=== PATIENT | male | born 1990 | race Caucasian/White ===

== ENCOUNTER 2020-04-19 15:17 | Observation (INO) | payer OTHER ==
[2020-04-20] MEDS ORDERED: BUPIVACAINE HCL 0.5% 30 ML VIAL As Ordered ONE (01:58)
[2020-04-20] MEDS ORDERED: ceFAZolin 2 GM/D5W 50 ML IV BAG (J0690 PER 500MG) As Ordered ONE (01:58)
[2020-04-20] MEDS ORDERED: dexameTHASONE 4 MG/ML 1ML VIAL (J1100 PER 1MG) As Ordered ONE (02:06)
[2020-04-20] MEDS ORDERED: KETOROLAC 60MG 2ML VIAL As Ordered ONE (02:06)
[2020-04-20] MEDS ORDERED: propofoL 200 MG/20 ML VIAL As Ordered ONE (02:06)
[2020-04-20] MEDS ORDERED: LIDOCAINE 2% 100MG/5ML SDV (FOR ANES.) As Ordered ONE (02:06)
[2020-04-20] MEDS ORDERED: MIDAZOLAM INJ 2MG/2ML VIAL (J2250 PER 1MG) As Ordered ONE (02:06)
[2020-04-20] MEDS ORDERED: fentaNYL 100 MCG/2 ML INJECTION (J3010) As Ordered ONE (02:06)
[2020-04-20] MEDS ORDERED: ONDANSETRON 4MG/2ML VIAL As Ordered ONE ×2 (02:06→03:14)
[2020-04-20] MEDS ORDERED: ONDANSETRON 4MG/2ML VIAL ONE (03:14)
[2020-04-20] MEDS ORDERED: oxyCODONE 5MG TAB ONE (03:14)
[2020-04-20] MEDS ORDERED: oxyCODONE 5MG TAB As Ordered ONE (03:15)
[2020-04-20] MEDS ORDERED: ASPIRIN 325 MG TAB As Ordered ONE (08:39)
[2020-04-20] MEDS ORDERED: ASPIRIN 325 MG TAB ONE (08:39)
[2020-04-21] MEDS ORDERED: ASPIRIN 325 MG TAB ONE (08:05)
[2020-05-18 01:30] LABS: APPEARANCE, BODY FLUID CLOUDY
[2020-05-18 01:31] LABS: CRYSTALS, BODY FLUID URIC ACID (NONE SEEN); SOURCE, BODY FLUID CRYSTALS LFT KNEE
[2020-05-18 11:26] LABS: BASO # 0.1 10^3/uL (0.0-0.2); BASO % 0.7 % (0.0-1.0); EOS # 0.1 10^3/uL (0.0-0.5); EOS % 1.2 % (0.0-3.0); ERYTHROCYTE SEDIMENTATION RATE 49 mm/hr (0-15); HEMOGLOBIN 14.6 g/dl (13.5-17.5); LYMPH # 2.1 10^3/uL (1.5-5.0); MEAN CORPUSCULAR HEMOGLOBIN 29.6 pg (27.0-33.0); MEAN CORPUSCULAR HGB CONC 33.2 g/dl (32.0-36.5); MEAN CORPUSCULAR VOLUME 89.2 fl (80.0-96.0); MONO # 1.5 10^3/uL (0.0-0.8); MONO % 15.4 % (0.0-5.0); NEUTROPHILS % 61.3 % (36.0-66.0); PLATELET COUNT, AUTOMATED 408 10^3/uL (150-450); RED BLOOD COUNT 4.93 10^6/uL (4.30-6.10); WHITE BLOOD COUNT 9.8 10^3/uL (4.0-10.0)
--- NOTE | 2020-05-23 14:33 | ER ---
DATE: 04/19/2020 REASON FOR CONSULTATION: Left knee swelling. 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 Patient does have a history of gout with one time flares in each foot, but nothing in his knees. He developed pain and swelling on April 15, and then over the next few days progressive knee pain and swelling, to the point where he had pain with weightbearing and severely restricted range of motion. He did have a flare of similar episodes a year to two ago that was nothing as bad as this. An emergency room (ER) physician attempted to aspirate his knee and got a dry tap. Patient is reporting fairly severe stabbing and throbbing pain a 10/10 on a pain scale at its worst, improved with morphine. LABORATORY DATA: Patient has an elevated C-reactive protein of 13, sed rate around 49, and white count is normal. Lyme test pending. Patient denies any COVID-19 symptoms. He is on a mandatory 14-day quarantine, but we did just get a negative COVID-19 test today. The quarantine is per protocol. For the patients full past medical history, past surgical history, medications, allergies, and social history, please see the emergency room intake form, which was reviewed. SOCIAL HISTORY: Patient is active duty. He just completed his third tour of duty. He just bought a house. He has a . They live in [place]. He does not smoke. 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 REVIEW OF SYSTEMS: Patient denies neurologic, cardiac, pulmonary, and abdominal symptoms. Umang skin symptoms or urinary symptoms. Musculoskeletal as above. PHYSICAL EXAMINATION: GENERAL: Reveals a well-appearing appearing gentleman in no distress. Alert and oriented x3. NEUROLOGIC: Appropriate mood and affect. CARDIOVASCULAR: 2+ PT pulse. PULMONARY: Nonlabored breathing. ABDOMEN: Nondistended. SKIN: Intact without open lesions. MUSCULOSKELETAL: Patient has a very large left knee effusion, which is warm, but there is no redness. He lacks 10 degrees of extension. He really can only flex to 50 degrees and he has severe pain with that. His effusion is tense and it is exquisitely tender to palpation. There is also swelling at the posteromedial aspect of the knee. Calf is soft and nontender. He is distally neurovascularly intact. IMAGING: An MRI was ordered and the report, not images, is available. Images not being available is due to the recent malware attack on [facility]. The report stated that there was a large joint effusion and Bakers cyst that appears to have partially decompressed into the posteromedial soft tissues. PLAN: Gigi Singer has a left knee effusion concerning for a septic joint versus gout. He needs an aspiration. The risks and benefits of a left knee aspiration were discussed. Written and informed consent obtained. PROCEDURE: The left knee was sterilely prepped with Betadine. I aspirated 60 mL of cloudy yellow synovial fluid with an 18-gauge needle. This was sent for stat fluid analysis and culture including aerobic, anaerobic, and fungal. The results of this aspiration reveals 72,000 white blood cells, 89% neutrophils, and small amount of uric acid crystals. ASSESSMENT: Gigi has a left knee effusion with gout versus septic arthritis versus a combination of the two. Options at this point are to proceed with an arthroscopic irrigation and debridement. In the likelihood that this is both gout and a septic joint, this would help minimize the risk of significant chondral damage. This is my recommendation. I offered for him to try to treat this nonoperatively with high dose Aleve and repeat blood testing in 36 hours; that is certainly a reasonable option, but it does carry a risk of delayed intervention and progressive chondral damage if it is in fact a bacterial septic arthritis. So after a long conversation, the patient has agreed to proceed with surgery. We discussed the risks and benefits of arthroscopic irrigation, debridement, and drain placement. Written informed consent was obtained. ROSEANNA
[2020-06-03 18:27] LABS: SOURCE, BODY FLUID GLUCOSE LFT KNEE
[2020-06-03 18:27] LABS: C REACTIVE PROTEIN QUANTITATIV 13.2 MG/DL (0.00-0.30); URIC ACID 9.3 MG/DL (3.5-7.2)
[2020-06-03 18:42] LABS: BODY FLUID RHEUMATOID SCREEN NEGATIVE (NEGATIVE)
[2020-06-03 18:43] LABS: MUCIN CLOT TEST 1+ (4+)
--- NOTE | 2020-06-22 10:57 | RO ---
DATE OF OPERATION: 04/20/2020 PREOPERATIVE DIAGNOSIS: Left knee effusion with probable septic arthritis. POSTOPERATIVE DIAGNOSIS: Left knee effusion with probable septic arthritis. PROCEDURE: Left knee arthroscopic irrigation and debridement. SURGEON: Lincoln Cao M.D. PATHOLOGY SUPERVISOR: None. ANESTHESIA: General. IV FLUIDS: Lactated ringers. ESTIMATED BLOOD LOSS: 50 mL. SPECIMEN: None. DRAINS: ARCELIA x1. CLOSURE: Nylon. DESCRIPTION OF PROCEDURE: The patient was identified in the preoperative holding area and the left leg was marked. He was brought to the operating room and placed supine on a well-padded OR table. General anesthesia induced. Examination under anesthesia revealed a large joint effusion with re-accumulation since his earlier aspiration. Positive full extension, flexion 125 degrees, stable varus and valgus stress, grade 1A David, negative posterior drawer. The left leg was then prepped and draped in the normal sterile fashion with ChloraPrep. He received 2 grams of IV cefazolin within 30 minutes of incision. A time-out was then performed per hospital protocol. An anterolateral portal was localized with a spinal needle and incision made with an 11 blade. The 30-degree arthroscope was introduced into the joint and the suction used to evacuate re-accumulation of his effusion. MRI reports that he has a large Bakers cyst so that was palpated and fluid posteriorly was attempted to be expressed into the joint. 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 There was extensive diffuse synovitis. There was cloudy fluid consistent with the same fluid from his aspiration. Medial compartment was inspected. There was [id number] chondromalacia. No obvious medial meniscus tearing. A large ligamentum mucosum was identified. There was some debris and fibrinous tissue in the anterior compartment. The leg was brought through the [id number] position where there were crystal embedded within the articular cartilage of the lateral tibial plateau consistent with the presence of gout crystals on the aspiration. No lateral meniscus tearing. An anteromedial portal was created under direct visualization and then the shaver introduced. I proceeded to flush the knee with 3 liters of lactated ringers. I then used the shaver to perform a debridement of all fibrinous tissue taking care not to disrupt hyperemic synovium to create extra bleeding. The pocket of crystals in the lateral compartment were debrided and removed with the shaver. The scope was placed back into the medial compartment and the joint was flushed. The scope was then placed in the lateral compartment and the joint was flushed. I then passively flexed and extended the knee repeatedly and palpated and attempted to manually decompress the Bakers cyst. The probe was placed toward the popliteal hiatus and flushed. The knee was then brought into full extension and the remainder of the joint was flushed, irrigated, and debrided. A total of 9 liters of fluid were used. A size 19 round drain was then placed under arthroscopic guidance exiting proximal and lateral to the patella. The arthroscope was removed and portals were closed with nylon suture. I injected 20 mL of 0.5% Marcaine without epinephrine, 10 at the portals and 10 into the joint. The John-Nowak (ARCELIA) drain was then attached to bulb suction. A bulky sterile dressing was then applied. All counts correct x2. Complications none. Patient was extubated and transferred to the PACU in stable condition. DISPOSITION: Patient will need to have IV antibiotics until Friday. If cultures are no growth at that point, he can be discharged on oral Bactrim with telephone follow-up the following Friday to check on final culture status. Patient is going to see his primary care doctor to start treatment for gout. ROSEANNA
== END 2020-04-21 12:08 | disposition home or self-care (01) ==
LOC: M ED 15:17 → M MSPAV 15:18 → UNDOADMOB 04-20 01:50 → UNDODISOB 04-21 12:08
PROVIDERS: ADMIT Orthopaedic Surgery; ATTEND Orthopaedic Surgery
DX: M25.462 Effusion, left knee (principal); M10.062 Idiopathic gout, left knee; M71.22 Synovial cyst of popliteal space [Baker], left knee; M22.42 Chondromalacia patellae, left knee; Z79.1 Long term (current) use of non-steroidal anti-inflammatories (NSAID); F17.200 Nicotine dependence, unspecified, uncomplicated
CPT/HCPCS: 20610; 29871; 29877; 73721; 82945; 83872; 84550; 85025; 85652; 86140; 86430; 87070; 87075; 87102; 87205; 89050; 89060; 93971; 97110; 97116; 97161; 99283; J0690; J1100; J1885; J2250; J2405; J3010; U0002